=== PATIENT | female | born 1960 | race Caucasian/White ===

== ENCOUNTER 2017-10-11 23:26 | Emergency (ER) | payer BC ==
[~2017-10-11] VITALS: Ht 162.6 cm; Wt 81.8 kg
[2017-10-11] MEDS ORDERED: LABETALOL HCL100 MG PO (23:36)
[2017-10-11] MEDS ORDERED: VASOTEC 10M10 MG/TAB PO (23:37)
[2017-10-11] MEDS ORDERED: WOMEN MULTIVIT1 EACH (23:38)
[2017-10-11] MEDS ORDERED: MASON NATURAL600 MG PO (23:40)
[2017-10-12] MEDS ORDERED: ALEVE220 M1 PO (00:01)
[2017-10-12] MEDS ORDERED: TESSALON PERLE100 M1 PO (00:23)
[2017-10-12 00:35] VITALS: BP 164/87
== END 2017-10-12 00:35 ==
LOC: ED 23:26
DX: J06.9 Acute upper respiratory infection, unspecified (principal); I10 Essential (primary) hypertension; G47.30 Sleep apnea, unspecified; Z87.891 Personal history of nicotine dependence; E66.9 Obesity, unspecified; Z68.30 Body mass index [BMI] 30.0-30.9, adult

== ENCOUNTER 2018-03-03 11:27 | Emergency (ER) | payer BC ==
[~2018-03-03] VITALS: Ht 165.1 cm; Wt 123.4 kg
[~2018-03-03 11:27] MED LIST: ALEVE220 M1 PO; LABETALOL HCL100 MG PO; MASON NATURAL600 MG PO; TESSALON PERLE100 M1 PO; VASOTEC 10M10 MG/TAB PO; WOMEN MULTIVIT1 EACH
[2018-03-03 12:03] LABS: BASO # 0.1 (0.02-0.10); EOS # 0.2 (0.04-0.40); EOS % 2.5 % (1.0-5.0); HEMATOCRIT 44.4 % (37.0-47.0); HEMOGLOBIN 14.5 g/dL (12.5-16.0); LYMPH# 1.8 (1.50-4.00); MEAN CELL VOLUME 88 fl (78-100); MEAN CORPUSCULAR HEMOGLOBIN 29 pg (27-31); MEAN CORPUSCULAR HGB CONC 33 g/dL (33-37); MONO # 0.5 (0.20-0.80); NEU # 3.8 (1.40-6.50); PLATELET COUNT 207 K/mm3 (130-400); RED BLOOD COUNT 5.05 M/mm3 (4.10-5.30); RED CELL DISTRIBUTION WIDTH 13.8 % (11.5-14.5); WHITE BLOOD COUNT 6.3 K/mm3 (4.8-10.8)
[2018-03-03 12:27] LABS: ALBUMIN 4.2 g/dL (3.5-5.0); BUN/CREATININE RATIO 17.1 (6.0-26.0); POTASSIUM 3.9 mmol/L (3.6-5.0); TOTAL BILIRUBIN 0.6 mg/dL (0.2-1.3); TOTAL PROTEIN 7.5 g/dL (6.3-8.2)
[2018-03-03 13:17] LABS: D-DIMER 0.9 mg/L FEU (0.15-0.50)
[2018-03-03] MEDS ORDERED: PREDNISONE20 M1 PO (14:55)
[2018-03-03] MEDS ORDERED: IPRATROPIUM BROM3 M1 IH (14:55)
[2018-03-03] MEDS ORDERED: ZITHROMAX 250M250 MG PO (14:55)
[2018-03-03 15:31] VITALS: BP 188/84
== END 2018-03-03 15:26 | disposition home or self-care (01) ==
LOC: ED 11:27
PROVIDERS: Nurse Practitioner Primary Care
DX: J20.9 Acute bronchitis, unspecified (principal); I10 Essential (primary) hypertension; Z87.891 Personal history of nicotine dependence; Z79.899 Other long term (current) drug therapy
CPT/HCPCS: J2930; Q9967

== ENCOUNTER 2018-03-10 08:16 | Emergency (ER) | payer BC ==
[~2018-03-10] VITALS: Wt 117.2 kg
[~2018-03-10 08:16] MED LIST changes: +ENALAPRIL20 MG PO; +IPRATROPIUM BROM3 M1 IH; +PREDNISONE20 M1 PO; -VASOTEC 10M10 MG/TAB PO; +ZITHROMAX 250M250 MG PO
[2018-03-10 09:22] LABS: BASO # 0.1 (0.02-0.10); EOS # 0.1 (0.04-0.40); EOS % 0.3 % (1.0-5.0); HEMATOCRIT 38.6 % (37.0-47.0); HEMOGLOBIN 12.9 g/dL (12.5-16.0); LYMPH# 2.4 (1.50-4.00); MEAN CELL VOLUME 87 fl (78-100); MEAN CORPUSCULAR HEMOGLOBIN 29 pg (27-31); MEAN CORPUSCULAR HGB CONC 33 g/dL (33-37); MEAN PLATELET VOLUME 10.8 fl (7.4-10.4); MONO # 0.6 (0.20-0.80); PLATELET COUNT 270 K/mm3 (130-400); RED BLOOD COUNT 4.43 M/mm3 (4.10-5.30); RED CELL DISTRIBUTION WIDTH 13.9 % (11.5-14.5); WHITE BLOOD COUNT 15.7 K/mm3 (4.8-10.8)
[2018-03-10 09:23] LABS: NEU # 12.5 (1.40-6.50)
[2018-03-10 09:33] LABS: ALBUMIN 3.9 g/dL (3.5-5.0); BUN/CREATININE RATIO 44.3 (6.0-26.0); CALCIUM 9.5 mg/dL (8.4-10.2); TOTAL BILIRUBIN 0.8 mg/dL (0.2-1.3); TOTAL PROTEIN 6.8 g/dL (6.3-8.2)
[2018-03-10 09:39] LABS: PROTHROMBIN TIME 10.5 SECONDS (9.0-12.0)
[2018-03-10 10:00] LABS: URINE APPEARANCE CLEAR; URINE BILIRUBIN NEGATIVE (NEGATIVE); URINE BLOOD NEGATIVE (NEGATIVE); URINE COLOR YELLOW; URINE GLUCOSE NEGATIVE (NEGATIVE); URINE KETONE NEGATIVE (NEGATIVE); URINE LEUKOCYTE ESTERASE 1+ (NEGATIVE); URINE NITRATE NEGATIVE (NEGATIVE); URINE PROTEIN(semi-quant) NEGATIVE (NEGATIVE); URINE UROBILINOGEN NORMAL (NORMAL)
[2018-03-10 10:05] LABS: D-DIMER 0.59 mg/L FEU (0.15-0.50)
[2018-03-10 10:24] LABS: ERYTHROCYTE SEDIMENTATION RATE 27 mm/hr (0-30)
[2018-03-10] MEDS ORDERED: ALPRAZOLAM0.25 MG PO (13:24)
[2018-03-10] MEDS ORDERED: MACROBID 100 M100 MG PO (13:24)
[2018-03-10 14:18] VITALS: BP 120/60
== END 2018-03-10 14:33 | disposition home or self-care (01) ==
LOC: ED 08:16
PROVIDERS: Nurse Practitioner
DX: N30.00 Acute cystitis without hematuria (principal); J20.9 Acute bronchitis, unspecified; F41.9 Anxiety disorder, unspecified; I10 Essential (primary) hypertension; Z87.891 Personal history of nicotine dependence; Z79.52 Long term (current) use of systemic steroids; Z79.899 Other long term (current) drug therapy
CPT/HCPCS: J0696; J2060; J2930; J7030; Q9967

== ENCOUNTER 2019-03-05 15:31 | Emergency (ER) | payer BC ==
[~2019-03-05] VITALS: Ht 167.6 cm; Wt 104.1 kg
[~2019-03-05 15:31] MED LIST changes: +ALPRAZOLAM0.25 MG PO; +B COMPLEX1 EACH PO; +DAILY VALUE1 EACH PO; +MACROBID 100 M100 MG PO; +OMEPRAZOLE40 MG PO; +SERTRALINE50 MG PO; +TURMERIC538 MG
[2019-03-05] MEDS ORDERED: TOPCARE OMEPRAZ20 MG PO (16:17)
[2019-03-05] MEDS ORDERED: CEPHALEXIN250 MG PO ×2 (16:18→17:46)
[2019-03-05] MEDS ORDERED: COUMADIN 5MG5 MG/TAB PO (16:18)
[2019-03-05 16:47] LABS: BASO # 0.1 (0.02-0.10); EOS # 0.2 (0.04-0.40); EOS % 3.1 % (1.0-5.0); HEMOGLOBIN 10.2 g/dL (12.5-16.0); LYMPH# 1.8 (1.50-4.00); MEAN CELL VOLUME 86 fl (78-100); MEAN CORPUSCULAR HEMOGLOBIN 27 pg (27-31); MEAN CORPUSCULAR HGB CONC 31 g/dL (33-37); MEAN PLATELET VOLUME 11.1 fl (7.4-10.4); MONO # 0.5 (0.20-0.80); NEU # 3.5 (1.40-6.50); PLATELET COUNT 271 K/mm3 (130-400); RED BLOOD COUNT 3.82 M/mm3 (4.10-5.30); RED CELL DISTRIBUTION WIDTH 15.7 % (11.5-14.5); WHITE BLOOD COUNT 6.1 K/mm3 (4.8-10.8)
[2019-03-05 16:53] LABS: POTASSIUM 3.8 mmol/L (3.5-5.1)
[2019-03-05 16:54] LABS: CALCIUM 9.4 mg/dL (8.3-10.5)
[2019-03-05 17:02] LABS: PROTHROMBIN TIME 29.4 SECONDS (9.0-12.0)
[2019-03-05 17:50] LABS: URINE APPEARANCE CLOUDY; URINE BILIRUBIN NEGATIVE (NEGATIVE); URINE BLOOD 250 ery/uL (NEGATIVE); URINE COLOR YELLOW; URINE GLUCOSE NEGATIVE (NEGATIVE); URINE KETONE NEGATIVE (NEGATIVE); URINE LEUKOCYTE ESTERASE 2+ (NEGATIVE); URINE NITRATE NEGATIVE (NEGATIVE); URINE PROTEIN(semi-quant) 3+ mg/dL (NEGATIVE); URINE UROBILINOGEN NORMAL (NORMAL); URINE WBC >50 /hpf (0-3)
[2019-03-05 17:53] VITALS: BP 148/80
== END 2019-03-05 18:18 | disposition home or self-care (01) ==
LOC: ED 15:31
PROVIDERS: Family Medicine
DX: K92.2 Gastrointestinal hemorrhage, unspecified (principal); R31.9 Hematuria, unspecified; I12.9 Hypertensive chronic kidney disease with stage 1 through stage 4 chronic kidney disease, or unspecified chronic kidney disease; N18.9 Chronic kidney disease, unspecified; I82.409 Acute embolism and thrombosis of unspecified deep veins of unspecified lower extremity; Z79.01 Long term (current) use of anticoagulants

== ENCOUNTER → 2020-05-14 | Outpatient (CLI) | payer BC ==
[~2020-05-14] MED LIST changes: +CEPHALEXIN250 MG PO; +COUMADIN 5MG5 MG/TAB PO; +TOPCARE OMEPRAZ20 MG PO
== END ==
LOC: PT 12:58
DX: Z47.1 Aftercare following joint replacement surgery (principal); Z96.651 Presence of right artificial knee joint

== ENCOUNTER 2020-07-23 08:45 | Outpatient (RCR) | payer BC | END 2020-07-30 | disposition home or self-care (01) | LOC: PT | DX: Z96.651 Presence of right artificial knee joint (principal) ==

== ENCOUNTER 2020-11-26 07:54 | Outpatient (RCR) | payer BC | END 2021-01-14 17:00 | disposition home or self-care (01) | LOC: PT 07:54 | DX: M17.12 Unilateral primary osteoarthritis, left knee (principal); Z96.652 Presence of left artificial knee joint ==

== ENCOUNTER 2023-02-24 07:48 | Outpatient (RCR) | payer OTHER | END 2023-03-26 | disposition home or self-care (01) | LOC: OT | DX: M25.532 Pain in left wrist (principal) ==